=== PATIENT | female | born 1990 | race African-American/Black ===

== ENCOUNTER 2016-04-22 22:05 | Emergency (ER) | payer BC | END 2016-04-23 04:03 | disposition home or self-care (01) | LOC: ER 22:05 | DX: M54.2 Cervicalgia (principal); V89.2XXA Person injured in unspecified motor-vehicle accident, traffic, initial encounter | CPT/HCPCS: 99284; A9270-GY ==

== ENCOUNTER 2016-04-28 16:36 | Emergency (ER) | payer BC | END 2016-04-28 16:45 | disposition home or self-care (01) | LOC: ER 16:36 | DX: J02.9 Acute pharyngitis, unspecified (principal); M25.50 Pain in unspecified joint; L08.9 Local infection of the skin and subcutaneous tissue, unspecified; F17.200 Nicotine dependence, unspecified, uncomplicated | CPT/HCPCS: 87070; 87880; 96372; 99284 ==